=== PATIENT | male | born 1975 | race Caucasian/White ===

== ENCOUNTER 2017-06-06 12:16 | Observation (INO) | payer BC, OTHER ==
[2017-06-06] MEDS ORDERED: LABETALOL HCL 5 MG/ML VIAL IV ONE ×3 (14:00→15:24)
[2017-06-06 14:35] LABS: Hematocrit 47.7 % (42.0-52.0); Hemoglobin 15.8 gm/dL (13.5-18.0); Mean Cell Volume 86.6 fl (78-100); Mean Corpuscular Hemoglobin 28.7 pg (27-31); Mean Corpuscular Hgb Conc 33.1 g/dl (32-36); Mean Platelet Volume 10.5 fl (6.0-9.5); Neutrophil # 8.7 K/mm3 (1.3-6.0); Neutrophil % 72.8 % (42-75.0); Platelet Count 234 K/mm3 (150-450); Red Blood Count 5.51 M/mm3 (4.7-6.0); Red Cell Distribution Width 13.2 % (11.5-14.0); White Blood Count 11.9 K/mm3 (4.0-10.5)
[2017-06-06 14:51] LABS: Albumin * 3.5 gm/dl (3.4-5.0); Anion Gap 13.1 mmol/L (6.8-13.8); Bilirubin, Total 0.3 mg/dL (0.0-1.1); Ca. Corrected For Albumin 8.6 mg/dL (8.4-10.2); Calcium * 8.5 mg/dL (7.9-10.9); Carbon Dioxide 25.9 mmol/L (24-32.6); Total Protein 7.2 gm/dL (6.2-8.2); Troponin I 0.033 ng/ml (0.00-0.10)
[2017-06-06] MEDS ORDERED: ENOXAPARIN SODIUM 100 MG/ML SYRG SC ONE ×2 (15:51→15:58)
[2017-06-06] MEDS ORDERED: LISINOPRIL 10 MG TABLET PO ONE (15:52)
[2017-06-06] MEDS ORDERED: ENALAPRILAT DIHYDRATE 2.5 MG/2 ML VIAL IV ONE ×2 (15:52→15:58)
[2017-06-06] MEDS ORDERED: LISINOPRIL 10 MG TABLET ONE (15:57)
--- NOTE | 2017-06-06 16:11 | ERNOTE ---
Lower Extremity HPI - Narrative Date of Service: 06/06/17 - General Lower Extremities Pain: leg: right Time Seen by Provider: 06/06/17 12:23 Source: patient Exam Limitations: no limitations - Immun/Allergies/Home Medications Immunizations: IMMUNIZATION HX Immunizations Up to Date Yes History of Influenza Vaccine No Hx Pneumococcal Vaccination No Allergies/Adverse Reactions: Allergies Allergy/AdvReac Type Severity Reaction Status Date / Time Penicillins Allergy Unknown Verified 06/06/17 12:24 Home Medications: HOME MEDICATIONS NK [No Home Medication] 06/06/17 [Last Taken Unknown] - History of Present Illness Narrative: Patient presents to the ED for right leg swelling. He relates several days of right leg pain and swelling. He has never had this before. nothing makes it better or worse. Has not seen anyone else for this. mild SOB wit hit also, no CP. Has been sitting alot with harvesting but no other long car or plane trips. Has a Hx of HPB but no recent treatment. No REYNOSO, no acute focal N/T/W. Occurred: other - several days ago Method of Injury: Reports: no apparent injury Loss of Consciousness: Reports: no loss of consciousness Modifying Factors - (Improves): Reports: other - nothing Modifying Factors - (Worsens): Reports: movement Associated Symptoms: Denies: dizzy/light headedness, headache, weakness, chest pain Other Injuries: Reports: none Subsequent Symptoms: Denies: motor loss Prior Treament: Denies: recently seen Review of Systems - Review of Systems Constitutional: Absent: fever Respiratory: Present: shortness of breath Cardiology: Absent: chest pain Gastrointestinal/Abdominal: Absent: abdominal pain Genitourinary: Absent: dysuria Neurological: Absent: weakness All Other Systems: All systems neg except as marked - Patient's Past Medical History Patient History - Medical: No pertinent hx Patient History - Cardiac/Respiratory: Hypertension Patient History - Cancer: No Hx of Cancer Patient History - Surgical Procedures: Other Patient History - Other: None - Social History Living Situations: home Abuse History: No History of abuse Psych History: No pertinent hx Smoking Status: Current every day smoker Have you smoked in the past 12 months: Yes - Immunizations Immunizations Up to Date: Yes Hx Pneumococcal Vaccination: No History of Influenza Vaccine: No Physical Exam - Physical Exam General Appearance: Present: alert, no apparent distress Head Exam: Present: normal inspection, no evidence of injury Eye Exam: Normal inspection: bilateral, PERRL: bilateral Ears, Nose, Throat: Present: normal ENT inspection Neck: Present: normal inspection, nontender Respiratory: Present: no respiratory distress, normal breath sounds, no accessory muscle use, lungs clear Cardiovascular/Chest: Present: regular rate, rhythm, normal peripheral pulses, other - strong DP pulse Gastrointestinal/Abdominal: Present: normal bowel sounds, nontender, nondistended, soft Back Exam: Present: normal range of motion Extremity Exam: Present: other - swelling rigght LE diffusely. No compartment syndrome. Strong DP pulse Neurological Exam: Present: alert, normal mood/affect, no motor/sensory deficits Skin Exam: Present: normal color, warm/dry ED Progress - Results and Orders Patient's Lab Results:: I have reviewed the patient's lab results. - Vital Signs Patient's Vital Signs:: I have reviewed the patient's vital signs. Vital Signs: Vital Signs 06/06/17 06/06/17 06/06/17 12:20 13:29 14:10 Temperature 37.2 C Pulse Rate 96 88 91 Respiratory 18 12 16 Rate Blood Pressure 234/144 222/123 O2 Sat by Pulse 96 97 95 Oximetry 06/06/17 06/06/17 06/06/17 14:36 14:39 15:08 Temperature Pulse Rate 88 82 84 Respiratory 12 12 Rate Blood Pressure 231/146 231/146 210/130 O2 Sat by Pulse 95 96 Oximetry 06/06/17 06/06/17 15:38 15:42 Temperature Pulse Rate 80 84 Respiratory 12 Rate Blood Pressure 194/119 194/119 O2 Sat by Pulse 95 Oximetry - EKG EKG: NSR EKG read: Interp. by me EKG Comments: NSR rate 93. Non-specific changes, no clear STEMI. - CT/Ultrasound CT/Ultrasound Narrative: I reviewed official CT and ultrasound reports. DVT with PE - Progress/Reassessment Chief Complaint: Lower Extremity Pain/ Injury Progress Note-Subjective: 06/06/17 16:09 IV labetalol given, improved BP but still needs additional IV meds. D/W Dr Durham, will admit. She recommends Lovenox, ABG, IV Enalapril and oral lisinopril. Ordered. Pt agreeable.. Departure Clinical Impression: DVT (deep venous thrombosis), Pulmonary embolism, HTN (hypertension) - Departure Disposition: [facility] Condition: Stable
--- NOTE | 2017-06-06 17:39 | HP ---
Chief Complaint - Chief Complaint Date of Service: 06/06/17 Time of Service: 17:38 Chief Complaint: Swelling in right lower extremity and mild shortness of breath for the last 3-4 days. History of Present Illness: Patient is a 42-year-old WM with a H/O HTN in 2011[off medication now], BMI of 35.6, nicotine abuse who presents to the ER on 06/06/17 due to increasing swelling and pain RT lower extremity and mild shortness of breath of 3-4 days duration. 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 He denies any chest pain, sputum production, swelling in his lower extremities, fever/chills. US of RT lower extremity reveals acute deep venous thrombosis involving the right femoral vein, popliteal vein, posterior tibial vein and peroneal vein. CTA showed intraluminal thrombus within the third and the fourth order branches of the right lower lobe c/w RT lower lobe pulmonary embolus. No evidence of significant right heart strain. Patient was also found to have a maximum BP of 234/146. He denied any history of headaches/blurred vision/lightheadedness/N/V/D. he was initially given labetalol 20 mg IV followed by enalapril 1.25 mg IV. BP on arrival to the floor was 170/110. - Patient's Past Medical History Additional info: PAST MEDICAL HISTORY: HTN in 2013[patient stopped medication as he thought it was due to pain] BMI 35.5. Nicotine abuse. Patient History - Cancer: No Hx of Cancer Additional Info: PAST SURGICAL HISTORY: ORIF of RT bimalleolar fracture of ankle 08/2013. Closed reduction of posterior malleolar fracture 08/2013 Microfracture of medial talar dome 08/2013 Patient History - Other: None - Family History Mother Family History - Medical: Other - 66-HTN Father Family History - Medical: Other - 70-OA - Social History Living Situations: home - with spouse Abuse History: No History of abuse Psych History: No pertinent hx Smoking Status: Current every day smoker - 1 pack per day 28 years[since age 14 ] Have you smoked in the past 12 months: Yes Alcohol Use: rarely - every month - Immunizations Immunizations Up to Date: Yes Hx Pneumococcal Vaccination: No History of Influenza Vaccine: No Review Of Systems (GEN) - Review of Systems Generalized/Overall Review: Absent: Weakness, Chills, Fever Respiratory: Present: Shortness of Breath. Absent: Cough Cardiac: Absent: Chest Pain, Edema Abdominal: Absent: Nausea, Vomiting Musculoskeletal: Present: Other - RT leg swelling and pain Immunizations: IMMUNIZATION HX Immunizations Up to Date Yes History of Influenza Vaccine No Hx Pneumococcal Vaccination No Allergies/Adverse Reactions: Allergies Allergy/AdvReac Type Severity Reaction Status Date / Time Penicillins Allergy Unknown Verified 06/06/17 17:53 Home Medications: HOME MEDICATIONS NK [No Home Medication] 06/06/17 [Last Taken Unknown] Exam - Exam Vital Signs: Vital Signs - Last Taken Temp 37.2 C 06/06/17 12:20 Pulse 76 06/06/17 16:30 Resp 12 06/06/17 16:30 BP 151/132 06/06/17 16:30 Pulse Ox 96 06/06/17 16:30 Constitutional: Present: Young, Obese, Looks Older than stated age ENT Exam: Present: hearing grossly normal, moist mucous membranes Eye Exam: bilateral eye: PERRL, EOMI Neck: Present: normal inspection, trachea midline Respiratory: Present: lungs clear, normal breath sounds, no accessory muscle use Cardiovascular/Chest: Present: regular rate, rhythm, no chest tenderness. Absent: tachycardia Peripheral Pulses: carotid (R): 2+, carotid (L): 2+ Abdomen: Present: Normal bowel sounds, soft, nondistended - moderately obese. /Rectal: Present: Exam deferred Extremity: Present: other - RTL.E: Swollen, scarring around RT ankle + due to prior surgery,1+ edema; L.L.E: WNL. Skin Exam: Present: normal color, warm/dry Neurologic: Present: alert, oriented x 3 Appearance: Present: appropriate appearance, appropriate insight Eye contact: Present: cooperative, good eye contact, normal speech Thoughts: Present: normal mood /affect Diagnostic Studies: Laboratory Tests 06/06/17 14:19 WBC 11.9 H Hgb 15.8 Hct 47.7 Plt Count 234 06/06/17 14:19 Plasma Sodium 139 Potassium 4.0 Chloride 104 Carbon Dioxide 25.9 BUN 20 Creatinine 1.05 Est GFR (Non-Af Amer) 83 Random Glucose 107 Calcium Adj for Albumin 8.6 Total Bilirubin 0.3 AST 18 ALT 25 Alkaline Phosphatase 114 Troponin I 0.033 Total Protein 7.2 Albumin 3.5 06/06/17 CTA CHEST: 14:54: 1. Intraluminal thrombus within the third and fourth order branches of the right lower lobe. No evidence of significant right heart strain. No pericardial/pleural effusions. Dependent atelectasis. Calcified right hilar lymph nodes/nonspecific infrahilar lymphadenopathy present. 2. RT lower lobe pulmonary embolus present. 06/06/17: US RT EXT LMT: 12:28: 1. Acute deep venous thrombosis involving the right femoral vein, popliteal vein, posterior tibial vein and peroneal vein. Assessment/Plan - Narrative Narrative: 1. DVT RT lower extremity and RT lower lobe pulmonary embolus: Enoxaparin 1mg/kbw subq BID and start eliquis or apixaban 10 mg PO BID. will require anticoagulation for 6 months as it is unprovoked. 2. Asymptomatic hypertensive urgency: Enalapril 1.25 mg IV every 6 hours for BP greater than 190/120 and start lisinopril 20 mg PO twice a day. 3. Nicotine abuse: Start nicotine patch 21 mg topically daily. 4. Obesity: BMI 35.5. 5. CODE STATUS: Full. - Assessment/Plan (1) Pulmonary embolus, right Problem: Acute (2) Asymptomatic hypertensive urgency Problem: Acute (3) Right leg DVT Problem: Acute Qualifiers: Affected thrombotic vein of extremity: other lower extremity vein Chronicity: acute Qualified Code(s): I82.491 - Acute embolism and thrombosis of other specified deep vein of right lower extremity (4) Nicotine abuse Problem: Chronic (5) Obesity Problem: Chronic Qualifiers: Obesity type: unspecified obesity type Body mass index: BMI 35.0-35.9
[2017-06-06] MEDS ORDERED: FLU VACC QS2017-18(6MOS UP)/PF 60 MCG/0.5 ML SYRINGE IM ONE (18:05)
[2017-06-06] MEDS ORDERED: ENALAPRILAT DIHYDRATE 1.25 MG/ML VIAL IV PRN (18:24)
[2017-06-06] MEDS ORDERED: NICOTINE 21 MG PATC TD SCH (18:45)
[2017-06-06] MEDS: APIXABAN 2.5 MG TABLET PO SCH ×2 (20:57→21:36)
[2017-06-06] MEDS ORDERED: ENOXAPARIN SODIUM 100 MG/ML SYRG SC SCH (21:00)
[2017-06-06] MEDS ORDERED: LISINOPRIL 10 MG TABLET PO SCH (21:00)
[2017-06-07] MEDS ORDERED: ENOXAPARIN SODIUM 100 MG/ML SYRG SC SCH (04:00)
[2017-06-07] MEDS ORDERED: LISINOPRIL 10 MG TABLET PO STA (08:42)
[2017-06-07] MEDS: APIXABAN 2.5 MG TABLET PO SCH (08:49)
[2017-06-07] MEDS ORDERED: FLU VACC QS2017-18(6MOS UP)/PF 60 MCG/0.5 ML SYRINGE IM ONE (09:00)
--- NOTE | 2017-06-07 12:03 | DS ---
(1) Pulmonary embolus, right Problem: Acute (2) Asymptomatic hypertensive urgency Problem: Acute (3) Right leg DVT Problem: Acute Qualifiers: Affected thrombotic vein of extremity: other lower extremity vein Chronicity: acute Qualified Code(s): I82.491 - Acute embolism and thrombosis of other specified deep vein of right lower extremity (4) Nicotine abuse Problem: Chronic (5) Obesity Problem: Chronic Qualifiers: Obesity type: unspecified obesity type Body mass index: BMI 35.0-35.9 Description of Stay: DATE OF ADMISSION: 06/06/2017. DATE OF DISCHARGE: 06/07/2017. DIAGNOSTICS: ULTRASOUND OF RT LOWER EXTREMITY: 06/06/2017. CTA CHEST: 06/06/2017. DISCHARGE SUMMARY: Patient is a 42-year-old WM with a history of HTN in 2013[off medication], nicotine abuse, BMI 35.5, who came to the ER on 06/06/17 due to increasing swelling and pain of R.L.E. and mild SOB for the last 3-4 days. 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 US of right lower extremity revealed an acute deep venous thrombosis involving the right femoral vein, popliteal vein and posterior tibial and peroneal vein. CTA showed RT lower lobe pulmonary embolus. Patient had a maximum BP of 234/146 w/o S/S headache, blurred vision, lightheadedness, N/V/ D. He was given labetalol 20 mg IV X1, enalapril 1.25 mg IV X1 and lisinopril 20 mg by mouth 1. On arrival to the floor his BP was 170/110. EKG showed normal sinus rhythm with nonspecific ST and T wave changes in the lateral leads. Troponin 0.033. Patient was started on Enoxaparin at 1mg/kbw subq twice a day and apaxiban [ eliquis]10 mg PO twice a day as it was not known whether his insurance would cover the latter medication and he might eventually end up on warfarin. The processes of DVT/medications were explained in detail to him. He required a dose of enalapril IV during the night for a BP of 176/113 at approximately 3 AM. Started on a nicotine patch TP at 21 mg daily. Patient was strongly encouraged to quit smoking. Patient is being discharged in a stable condition on lisinopril 20 mg twice a day, apaxiban [eliquis] 10 mg by mouth twice a day for one week and then 5 mg twice a day for 6 months[as the PE/DVT unprovoked]. Patient may require sleep studies on an outpatient basis[ to be discussed by patient and PCP]. Greater than 30 minutes was spent with the patient discussing plan of care; reconciliation of medications, preparation and dictating discharge summary. Procedures Performed: none Results and Findings: Laboratory Tests 06/06/17 14:19 WBC 11.9 H Hgb 15.8 Hct 47.7 Plt Count 234 06/06/17 14:19 Plasma Sodium 139 Potassium 4.0 Chloride 104 Carbon Dioxide 25.9 BUN 20 Creatinine 1.05 Est GFR (Non-Af Amer) 83 Random Glucose 107 Calcium Adj for Albumin 8.6 Total Bilirubin 0.3 AST 18 ALT 25 Alkaline Phosphatase 114 Troponin I 0.033 Total Protein 7.2 Albumin 3.5 06/06/17 CTA CHEST: 14:54: 1. Intraluminal thrombus within the third and fourth order branches of the right lower lobe. No evidence of significant right heart strain. No pericardial/pleural effusions. Dependent atelectasis. Calcified right hilar lymph nodes/nonspecific infrahilar lymphadenopathy present. 2. RT lower lobe pulmonary embolus present. 06/06/17: US RT EXT LMT: 12:28: 1. Acute deep venous thrombosis involving the right femoral vein, popliteal vein, posterior tibial vein and peroneal vein. EK06/06/17: Normal sinus rhythm with nonspecific ST and T wave changes. Discharge Disposition: Home self care Disposition: Home self-care Condition: Undetermined Discharge Activity: Activity as tolerated Referrals: Christi Murillo MD [Primary Care Provider] - Consultation Done:: None Problem Oriented Discharge Instructions to Patient/Family: Pulmonary Embolism, Hypertension, [id number], Deep Vein Thrombosis Additional Patient Instructions (free text): 1. Follow-up with PCP on 06/10/17 for BP check - 8:30 - 8:45 a.m. 2. Be compliant with medications. 3. Encouraged to quit smoking. [Nicotine patch 21 mg for one month, 14 mg for second month, 7 mg for third month.] 4. Need to be on blood thinners for 6 months. 5. Vitamin D3 2000 units daily with food. 6. Follow-up with Dr. Durham on 06/18/17 @ 10:15 a.m. Prescriptions (Any new or edited meds): Apixaban [Eliquis] 5 mg PO BID #70 tablet Lisinopril [Zestril] 20 mg PO BID #120 tablet Nicotine [Nicotine Patch] 1 each TD DAILY #30 patch.td24 Complete Home Medications List: Complete Home Medication List: Apixaban [Eliquis] 5 mg PO BID #70 tablet 06/07/17 Lisinopril [Zestril] 20 mg PO BID #120 tablet 06/07/17 Nicotine [Nicotine Patch] 1 each TD DAILY #30 patch.td24 06/07/17
[2017-06-07 15:10] VITALS: BP 152/102
[2017-06-07] MEDS ORDERED: ENOXAPARIN SODIUM SC SCH ×2 (16:00)
[2017-06-11 07:26] LABS: Protein C Activity 72 % normal (70-180); Protein C Antigen 87 % normal (70-140)
== END 2017-06-07 15:22 | disposition home or self-care (01) ==
LOC: ER 12:16 → MS 15:57
PROVIDERS: ADMIT Internal Medicine; ATTEND Internal Medicine
PROC: 4A033R1 Measurement of Arterial Saturation, Peripheral, Percutaneous Approach (ICD-10-PCS; principal; 2017-06-06)
DX: I82.411 Acute embolism and thrombosis of right femoral vein (principal); I82.441 Acute embolism and thrombosis of right tibial vein; I82.491 Acute embolism and thrombosis of other specified deep vein of right lower extremity; I16.0 Hypertensive urgency; F17.210 Nicotine dependence, cigarettes, uncomplicated; E66.9 Obesity, unspecified; Z68.35 Body mass index [BMI] 35.0-35.9, adult; Z23 Encounter for immunization; I10 Essential (primary) hypertension
CPT/HCPCS: 36415; 36600; 71275; 80053; 81241; 82803; 83090; 84484; 85025; 85300; 85302; 85303; 85305; 85306; 90471; 90686; 93005; 93971; 96372; 96374; 96375; 96376; 99285; G0378

== ENCOUNTER 2020-12-08 09:57 | Observation (INO) ==
[2020-12-08 10:41] LABS: Hematocrit 27.8 % (42.0-52.0); Hemoglobin 8.8 gm/dL (13.5-18.0); Mean Corpuscular Hemoglobin 26.6 pg (27-31); Mean Corpuscular Hgb Conc 31.7 g/dl (32-36); Mean Platelet Volume 10.5 fl (8-11.3); Neutrophil # 14.4 K/mm3 (1.3-6.0); Neutrophil % 80.9 % (42-75.0); Platelet Count 271 K/mm3 (150-450); Red Blood Count 3.31 M/mm3 (4.7-6.0); Red Cell Distribution Width 15.2 % (11.5-14.0); White Blood Count 17.8 K/mm3 (4.0-10.5)
[2020-12-08 10:49] LABS: Prothrombin Time (Patient) 10.7 Seconds (9.1-10.7)
[2020-12-08 10:51] LABS: INR 1.03 INR (0.92-1.08); Partial Thrombolplastin Time 23.1 Seconds (24-32)
[2020-12-08 10:53] LABS: Albumin * 2.3 gm/dl (3.4-5.0); Anion Gap 15.2 mmol/L (6.8-13.8); BUN/Creatinine Ratio 37.3 (9.0-21.6); Bilirubin, Total 0.1 mg/dL (0.0-1.1); Ca. Corrected For Albumin 8.7 mg/dL (8.4-10.2); Calcium * 7.7 mg/dL (7.9-10.9); Carbon Dioxide 23.1 mmol/L (24-32.6); Potassium 3.3 mmol/L (3.4-4.6); Total Protein 4.9 gm/dL (6.2-8.2)
[2020-12-08] MEDS ORDERED: NORMAL SALINE 1,000 ML IV PRN (11:20)
[2020-12-08] MEDS ORDERED: PANTOPRAZOLE SODIUM 40 MG/100 ML PIGGYBACK IV ONE (11:21)
[2020-12-08] MEDS ORDERED: DIATRIZOATE MEGLUMINE, SODIUM 30 ML BTL ONE (11:48)
[2020-12-08] MEDS ORDERED: DIATRIZOATE MEGLUMINE, SODIUM 30 ML BTL PO ONE (11:51)
[2020-12-08 12:06] LABS: Urine Appearance Clear (CLEAR); Urine Bacteria None Seen; Urine Bilirubin Negative (NEGATIVE); Urine Blood Negative /ul (NEGATIVE); Urine Color Yellow; Urine Ketone Negative (NEGATIVE); Urine Nitrite Negative (NEGATIVE); Urine Protein 15 mg/dL (NEGATIVE); Urine RBC None Seen /hpf (0-5); Urine Urobilinogen Normal (NORMAL); Urine WBC None Seen /hpf (0-5); Urine pH 5.5 pH (5.0-7.0)
[2020-12-08] MEDS ORDERED: PIPERACILLIN SODIUM/TAZOBACTAM 3.375 GM in DEXTROSE 5 % IN WATER 100 ML IV ONE ×2 (12:09)
--- NOTE | 2020-12-08 12:12 | ERNOTE ---
GI Bleeding/Rectal Pain ER Date of Service: 12/08/20 Presenting Symptoms: rectal bleeding Time Seen by Provider: 12/08/20 11:05 Source: patient, RN notes reviewed Exam Limitations: no limitations Immunizations: IMMUNIZATION HX Immunizations Up to Date Yes History of Influenza Vaccine No Hx Pneumococcal Vaccination No Allergies/Adverse Reactions: Allergies Penicillins Allergy (Unknown, Verified 12/08/20 09:59) Home Medications: HOME MEDICATIONS amlodipine 10 mg tablet 10 mg PO QAM #30 tab 09/09/19 [Last Taken Unknown] furosemide 20 mg tablet 20 mg PO QAM #30 tab 09/09/19 [Last Taken Unknown] lisinopril 20 mg-hydrochlorothiazide 25 mg tablet 1 tab PO DAILY #30 tab 09/09/19 [Last Taken Unknown] metoprolol succinate 100 mg capsule sprinkle, ext. release 24 hr 100 mg PO DAILY #30 ea 09/09/19 [Last Taken Unknown] spironolactone 25 mg tablet See Rx Instructions .ROUTE .COMPLEX #60 unknown measurement unit code: not specified 11/20/19 [Last Taken Unknown] apixaban 5 mg tablet See Rx Instructions .ROUTE .COMPLEX #30 unknown measurement unit code: not specified 12/15/19 [Last Taken Unknown] Narrative: Jorge is a 45 yo male patient presents in NAD w/reports of lightheaded and weakness yesterday and last night that led him to drive to the ER for care today. He reports seeing blood in his stool this morning and some in the night. Denies fever, N/V/D, abdominal pain, hx of hemorrhoids, blood in his urine, CP, SOB. Patient denies known intestinal infections, diverticuli or masses or family hx of colon disease. Patient states he has not had any episodes of blood in his stools before. Patient states he has not taken his Eliquis for at least 1 month. PMHx positive DVT. Date (Duration): 12/07/20 Time (Timing): 08:00 Timing: constant, getting worse Prior Treament: Denies: recently seen Review of Systems - Narrative Narrative: Patient reports told he had PCN allergy as a child. Has had PCN as an adult multiple times w/o any reactions. - Review of Systems Constitutional: Present: no symptoms reported, See HPI, weakness. Absent: recent illness, fever EYE: Present: no symptoms reported. Absent: vision changes ENT: Present: no symptoms reported. Absent: ear pain, nose congestion, sore throat Respiratory: Present: See HPI. Absent: shortness of breath, cough Cardiology: Present: See HPI, other - "almost passed out going to the bathroom last night". Absent: chest pain, palpitations Gastrointestinal/Abdominal: Present: See HPI. Absent: nausea, vomiting, abdominal pain Genitourinary: Present: See HPI. Absent: dysuria, hematuria Musculoskeletal: Absent: back pain, joint pain, joint swelling Skin: Absent: rash, change in color Neurological: Present: dizziness/light-headedness, weakness. Absent: headache, tingling, tremors Endocrine: Absent: excessive sweating, unexplained weight gain, unexplained weight loss Hematologic/Lymphatic: Present: other - Denies taking any Eliquis for at least 30 days. Absent: easy bruising, easy bleeding Psych: Present: no symptoms reported Medical History (Last Reviewed 12/08/20 @ 11:18 by GABRIELA Oliva) History of deep vein thrombosis (DVT) of lower extremity (Chronic) Hypoalbuminemia (Chronic) Most likely secondary to chronic kidney disease Chronic kidney disease (CKD) stage G2/A1, mildly decreased glomerular filtration rate (GFR) between 60-89 mL/min/1.73 square meter and albuminuria creatinine ratio less than 30 mg/g (Chronic) Diastolic congestive heart failure, NYHA class 1 (Chronic) With decreased ejection fraction of 40%. last echo completed with January 25, 2019 Encounter for vision screening (Acute) R: 20/25 L: 20/20 B: 20/20 No correction Encounter for annual physical exam (Acute) Lymphadenopathy, inguinal (Acute) Microcytic anemia (Acute) No previous records to compare cell lines Lower extremity edema (Acute) Most likely secondary to congestive heart failure Obesity due to excess calories (Chronic) Essential hypertension (Chronic) Poorly controlled Snoring (Chronic) Associated with daytime fatigue Screening for depression (Ruled-out) Encounter to establish care with new doctor (Chronic) Congestive heart failure due to hypertension (Chronic) BNP obtained on December 20 greater than 14,000 Epididymitis (Acute) DVT (deep venous thrombosis) (Resolved) Pulmonary embolism (Resolved) HTN (hypertension) (Chronic) Asymptomatic hypertensive urgency (Acute) Pulmonary embolus, right (Resolved) Right leg DVT (Resolved) Nicotine abuse (Chronic) Obesity (Chronic) CHF (congestive heart failure) Surgical History: Surgical History (Last Reviewed 12/08/20 @ 11:19 by GABRIELA Oliva) Right ankle injury Repaired Family History: Family History (This Medical Record has been edited. Action required.) Factor V deficiency Hypertension Mother Social History: (This Medical Record has been edited. Action required.) Social History: Marital status: Single lives independently: Yes current occupational status: employed current occupation: [employer] Highest level of school completed/degree received: some college, no degree Service: No Tobacco: Smoking Status: Current every day smoker tobacco type: cigarettes Smoking cigarettes per day: 10.0 Smoking packs per day: 0.5 Alcohol: alcohol intake: former Substance Use: substance use type: does not use Dietary Habits: caffeine: Yes caffeine comment: daily Type: coffee Physical Exam - Physical Exam General Appearance: Present: wd/wn, alert, no apparent distress Head Exam: Present: normal inspection, no evidence of injury, no tenderness w palpation Eye Exam: Normal inspection: bilateral, PERRL: bilateral, EOMI: bilateral Ears, Nose, Throat: Present: normal ENT inspection, normal pharynx Neck: Present: normal inspection, nontender, supple, full range of motion. Absent: lymphadenopathy (R), lymphadenopathy (L) Respiratory: Present: no respiratory distress, normal breath sounds, no accessory muscle use, chest nontender, lungs clear. Absent: decreased breath sounds, pleural rub Cardiovascular/Chest: Present: no murmur, normal peripheral pulses, tachycardia - 103 Gastrointestinal/Abdominal: Present: normal bowel sounds, nontender, nondistended, soft, no organomegaly, other - Hematochezia present w/o stool, w/o melena. Absent: guarding, rebound Rectal Exam: Present: normal rectal tone, normal prostate, blood-streaked stool, tenderness, other. Absent: mass, fecal impaction, hemorrhoids Male Genitals Exam: Present: normal genitalia. Absent: no hernia Back Exam: Present: normal inspection, normal range of motion, no CVA tenderness Extremity Exam: Present: normal inspection, non-tender. Absent: decreased range of motion, joint swelling, extremity edema Neurological Exam: Present: alert, oriented, no motor/sensory deficits, other - flattened affect Skin Exam: Present: cool/dry, pallor. Absent: cyanosis, jaundice, skin rash Lymphatic Exam: Absent: no adenopathy Progress - Date and Time Seen: Date and Time: 12/08/20 14:30 Patient states he no longer feels lightheaded. Continues to deny nausea, - Results and Orders Patient's Lab Results:: I have reviewed the patient's lab results. - Vital Signs Patient's Vital Signs:: I have reviewed the patient's vital signs. Vital Signs: Vital Signs 12/08/20 09:58 Temperature 35.6 C L Pulse Rate 105 H Respiratory Rate 16 Blood Pressure 142/79 H O2 Sat by Pulse Oximetry 99 - EKG EKG #1 EKG: other - Sinus Tachycardia EKG read: Reviewed by me - Sinus Tach, Lead placement in question and repeat EKG requested - Progress/Reassessment Chief Complaint: GI Bleed Progress:: Improved Progress Note-Subjective: Patient states he feels better and is willing to get up to urinate and see how he tolerates being upright. Abdomen is moderately soft and minimally tender to LLQ. 12/08/20 17:10 Plan - Plan Plan: DDx: Acute Lower GI Bleed, Upper GI Bleed, Bowel Perforation, Sepsis, Acute Anemia r/t blood loss. Patient case reviewed w/Dr. Sams and he is in agreenh nt with GI Bleed work-up and evaluation for Sepsis. Zosyn given for elevated WBC 17.8 and Heme Positive stool. 1500 Dr. Bettencourt contacted and he recommends tagged RBC nuclear scan for active bleeding. He can be consulted tomorrow if Family Practice/Internal Medicine consults him following the scan if he is actively bleeding. 1530 Dr. Vasquez contacted for admission and she declines admission due to no surgeon recruiting operations consultant locally and verbalizes concern that he could possibly rebleed. F/U CBC drawn w/Hgb remaining essentially unchanged and WBC 16.9. Nuclear Medicine can do his scan here at 0630am. 1645 Patient is requesting to stay at [facility] if possible. Patient phone call with Daphney Johnson RN and discussion with patient and his family and Patient verbalizes understanding that if he is admitted to [facility] and demonstrates a decline in his condition prior to tomorrow that he will need to be transferred to a higher level of care. 1715 Dr. Arguello accepts the patient for admission and present to evaluate patient. Nuclear Medicine tagged RBC scan will be ordered once admission is complete. Departure Clinical Impression: Lower GI bleed, Anemia associated with acute blood loss - Departure Disposition: Still a patient Condition: Stable Referrals: Kole Arguello DO [Primary Care Provider] -
[2020-12-08 12:29] LABS: CRP 1.1 mg/dL (0.0-0.9)
[2020-12-08] MEDS ORDERED: NORMAL SALINE 1,000 ML IV ONE (13:34)
[2020-12-08 15:48] LABS: Hematocrit 26.7 % (42.0-52.0); Hemoglobin 8.4 gm/dL (13.5-18.0); Mean Cell Volume 84.5 fl (78-100); Mean Corpuscular Hemoglobin 26.6 pg (27-31); Mean Corpuscular Hgb Conc 31.5 g/dl (32-36); Mean Platelet Volume 11.6 fl (8-11.3); Neutrophil % 77.2 % (42-75.0); Platelet Count 264 K/mm3 (150-450); Red Blood Count 3.16 M/mm3 (4.7-6.0); Red Cell Distribution Width 15.4 % (11.5-14.0); White Blood Count 16.9 K/mm3 (4.0-10.5)
[2020-12-08] MEDS ORDERED: hydrALAZINE HCL 20 MG/ML VIAL IV PRN (17:31)
--- NOTE | 2020-12-08 17:34 | HP ---
Chief Complaint - Chief Complaint Date of Service: 12/08/20 Time of Service: 17:34 Chief Complaint: Bright red blood per rectum, fatigue History of Present Illness: 45-year-old male with history of congestive heart failure, diastolic grade 1, h ypertension, history of DVT with pulmonary embolus who presented to the ER today for lightheadedness and weakness that began 24 hours earlier. Patient states that he had a bloody bowel movement that morning which she has never had before. He denies abdominal pain, nausea or vomiting, fever or chills. Patient's initial hemoglobin was 8.8 and his heart rate was 105. Blood pressure was stable at 142/79. He was satting 99 % on room air. Patient had an abdominal and pelvic CT scan which was fairly benign aside from some incidental findings of atherosclerotic disease and degenerative changes but the source of bleeding was not identified. He also has mild retention of stool seen but otherwise negative exam. Patient did have a positive guaiac study in the ER. Our general surgeon was consulted who wanted to do a nuclear scan in the morning to look for GI bleed. Patient was stable upon examination and was not actively bleeding. He was typed and crossed and blood was ordered just in case. Patient was placed under observation for lower GI bleed. Patient also on Eliquis for his DVTs and history of pulmonary embolus. He has been out of this medicine though for the last 2 months and has not taken it. Other pertinent lab work include an acute kidney injury with his creatinine at 1.66 and his GFR at 48. His lactic acid was negative. Medical History (Last Reviewed 12/08/20 @ 11:18 by GABRIELA Oliva) History of deep vein thrombosis (DVT) of lower extremity (Chronic) Hypoalbuminemia (Chronic) Most likely secondary to chronic kidney disease Chronic kidney disease (CKD) stage G2/A1, mildly decreased glomerular filtration rate (GFR) between 60-89 mL/min/1.73 square meter and albuminuria creatinine ratio less than 30 mg/g (Chronic) Diastolic congestive heart failure, NYHA class 1 (Chronic) With decreased ejection fraction of 40%. last echo completed with January 25, 2019 Encounter for vision screening (Acute) R: 20/25 L: 20 B: 20 No correction Encounter for annual physical exam (Acute) Lymphadenopathy, inguinal (Acute) Microcytic anemia (Acute) No previous records to compare cell lines Lower extremity edema (Acute) Most likely secondary to congestive heart failure Obesity due to excess calories (Chronic) Essential hypertension (Chronic) Poorly controlled Snoring (Chronic) Associated with daytime fatigue Screening for depression (Ruled-out) Encounter to establish care with new doctor (Chronic) Congestive heart failure due to hypertension (Chronic) BNP obtained on December 20 greater than 14,000 Epididymitis (Acute) DVT (deep venous thrombosis) (Resolved) Pulmonary embolism (Resolved) HTN (hypertension) (Chronic) Asymptomatic hypertensive urgency (Acute) Pulmonary embolus, right (Resolved) Right leg DVT (Resolved) Nicotine abuse (Chronic) Obesity (Chronic) CHF (congestive heart failure) Surgical History: Surgical History (Last Reviewed 12/08/20 @ 11:19 by GABRIELA Oliva) Right ankle injury Repaired Family History: Family History (This Medical Record has been edited. Action required.) Mother Hypertension Other Factor V deficiency Social History: (This Medical Record has been edited. Action required.) Social History: Marital status: Single lives independently: Yes current occupational status: employed current occupation: [employer] Highest level of school completed/degree received: some college, no degree Service: No Tobacco: Smoking Status: Current every day smoker tobacco type: cigarettes Smoking cigarettes per day: 10.0 Smoking packs per day: 0.5 Alcohol: alcohol intake: former Substance Use: substance use type: does not use Dietary Habits: caffeine: Yes caffeine comment: daily Type: coffee Review Of Systems (GEN) - Review of Systems Generalized/Overall Review: Present: Weakness, Fatigue. Absent: Chills, Fever EENTM: Present: No Symptoms Reported Respiratory: Present: No Symptoms Reported Cardiac: Present: No Symptoms Reported Abdominal: Present: Bright blood from rectum. Absent: Constipation, Diarrhea Genitourinary: Absent: No Symptoms Reported Musculoskeletal: Present: Back Pain - Chronic Neurological: Present: No Symptoms Reported Skin: Present: No Symptoms Reported Immunizations: IMMUNIZATION HX Immunizations Up to Date Yes History of Influenza Vaccine No Hx Pneumococcal Vaccination No Allergies/Adverse Reactions: Allergies Allergy/AdvReac Type Severity Reaction Status Date / Time Penicillins Allergy Unknown Verified 12/08/20 09:59 Home Medications: HOME MEDICATIONS amlodipine 10 mg tablet 10 mg PO QAM #30 tab 09/09/19 [Last Taken Unknown] furosemide 20 mg tablet 20 mg PO QAM #30 tab 09/09/19 [Last Taken Unknown] lisinopril 20 mg-hydrochlorothiazide 25 mg tablet 1 tab PO DAILY #30 tab 09/09/19 [Last Taken Unknown] metoprolol succinate 100 mg capsule sprinkle, ext. release 24 hr 100 mg PO DAILY #30 ea 09/09/19 [Last Taken Unknown] spironolactone 25 mg tablet See Rx Instructions .ROUTE .COMPLEX #60 unknown measurement unit code: not specified 11/20/19 [Last Taken Unknown] apixaban 5 mg tablet See Rx Instructions .ROUTE .COMPLEX #30 unknown measurement unit code: not specified 12/15/19 [Last Taken Unknown] Exam - Exam Vital Signs: Vital Signs - Last Taken Temp 36 C 12/08/20 17:29 Pulse 120 H 12/08/20 17:29 Resp 20 12/08/20 17:29 BP 153/87 H 12/08/20 17:29 Pulse Ox 97 12/08/20 17:29 Constitutional: Present: Alert, Oriented x3, Cooperative, No distress ENT Exam: Present: hearing grossly normal Eye Exam: bilateral eye: normal inspection, EOMI Neck: Present: non-tender, supple, trachea midline Respiratory: Present: lungs clear, normal breath sounds Cardiovascular/Chest: Present: no murmur, tachycardia Peripheral Pulses: dorsalis-pedis (R): 2+, dorsalis-pedis (L): 2+ Abdomen: Present: Normal bowel sounds, soft, nontender, nondistended Extremity: Present: normal capillary refill. Absent: lower extremity edema Skin Exam: Present: cool/dry, pallor Neurologic: Present: alert, normal mood/affect, oriented x 3 Appearance: Present: appropriate appearance, appropriate insight Eye contact: Present: cooperative, good eye contact Thoughts: Present: normal thought pattern, normal mood /affect Diagnostic Studies: Abnormal Lab Results 12/08/20 12/08/20 12/08/20 Range/Units 10:35 10:35 10:35 WBC 17.8 H (4.0-10.5) K/mm3 RBC 3.31 L (4.7-6.0) M/mm3 Hgb 8.8 L (13.5-18.0) gm/dL Hct 27.8 L (42.0-52.0) % MCH 26.6 L (27-31) pg MCHC 31.7 L (32-36) g/dl RDW 15.2 H (11.5-14.0) % MPV (8-11.3) fl Immature Gran % (Auto) 0.80 H (0.001-0.429) % Immature Gran # (Auto) 0.14 H (0.000-0.0310) K/mm3 Neutrophils % 80.9 H (42-75.0) % Lymphocytes % 11.5 L (20-51) % Neutrophils # 14.4 H (1.3-6.0) K/mm3 Monocytes # 1.1 H (0.0-1.0) k/mm3 PTT ([place]) 23.1 L (24-32) Seconds Potassium 3.3 L (3.4-4.6) mmol/L Carbon Dioxide 23.1 L (24-32.6) mmol/L Anion Gap 15.2 H (6.8-13.8) mmol/L BUN 62 H (6-23) mg/dL Creatinine 1.66 H (0.4-1.4) mg/dL Est GFR (Non-Af Amer) 48 L (60-130) mL/min BUN/Creatinine Ratio 37.3 H (9.0-21.6) Random Glucose 119 H (70-110) mg/dL Calcium 7.7 L (7.9-10.9) mg/dL C-Reactive Prot, Quant (0.0-0.9) mg/dL Total Protein 4.9 L (6.2-8.2) gm/dL Albumin 2.3 L (3.4-5.0) gm/dl Urine Protein (NEGATIVE) mg/dL Stool Occult Blood 12/08/20 12/08/20 12/08/20 Range/Units 10:35 11:33 11:33 WBC (4.0-10.5) K/mm3 RBC (4.7-6.0) M/mm3 Hgb (13.5-18.0) gm/dL Hct (42.0-52.0) % MCH (27-31) pg MCHC (32-36) g/dl RDW (11.5-14.0) % MPV (8-11.3) fl Immature Gran % (Auto) (0.001-0.429) % Immature Gran # (Auto) (0.000-0.0310) K/mm3 Neutrophils % (42-75.0) % Lymphocytes % (20-51) % Neutrophils # (1.3-6.0) K/mm3 Monocytes # (0.0-1.0) k/mm3 PTT ([place]) (24-32) Seconds Potassium (3.4-4.6) mmol/L Carbon Dioxide (24-32.6) mmol/L Anion Gap (6.8-13.8) mmol/L BUN (6-23) mg/dL Creatinine (0.4-1.4) mg/dL Est GFR (Non-Af Amer) (60-130) mL/min BUN/Creatinine Ratio (9.0-21.6) Random Glucose (70-110) mg/dL Calcium (7.9-10.9) mg/dL C-Reactive Prot, Quant 1.1 H (0.0-0.9) mg/dL Total Protein (6.2-8.2) gm/dL Albumin (3.4-5.0) gm/dl Urine Protein 15 H (NEGATIVE) mg/dL Stool Occult Blood Positive H 12/08/20 Range/Units 15:44 WBC 16.9 H (4.0-10.5) K/mm3 RBC 3.16 L (4.7-6.0) M/mm3 Hgb 8.4 L (13.5-18.0) gm/dL Hct 26.7 L (42.0-52.0) % MCH 26.6 L (27-31) pg MCHC 31.5 L (32-36) g/dl RDW 15.4 H (11.5-14.0) % MPV 11.6 H (8-11.3) fl Immature Gran % (Auto) 0.50 H (0.001-0.429) % Immature Gran # (Auto) 0.08 H (0.000-0.0310) K/mm3 Neutrophils % 77.2 H (42-75.0) % Lymphocytes % 14.4 L (20-51) % Neutrophils # 13.0 H (1.3-6.0) K/mm3 Monocytes # 1.1 H (0.0-1.0) k/mm3 PTT ([place]) (24-32) Seconds Potassium (3.4-4.6) mmol/L Carbon Dioxide (24-32.6) mmol/L Anion Gap (6.8-13.8) mmol/L BUN (6-23) mg/dL Creatinine (0.4-1.4) mg/dL Est GFR (Non-Af Amer) (60-130) mL/min BUN/Creatinine Ratio (9.0-21.6) Random Glucose (70-110) mg/dL Calcium (7.9-10.9) mg/dL C-Reactive Prot, Quant (0.0-0.9) mg/dL Total Protein (6.2-8.2) gm/dL Albumin (3.4-5.0) gm/dl Urine Protein (NEGATIVE) mg/dL Stool Occult Blood Laboratory Results WBC 16.9 K/mm3 (4.0-10.5) H 12/08/20 15:44 RBC 3.16 M/mm3 (4.7-6.0) L 12/08/20 15:44 Hgb 8.4 gm/dL (13.5-18.0) L 12/08/20 15:44 Hct 26.7 % (42.0-52.0) L 12/08/20 15:44 MCV 84.5 fl (78-100) 12/08/20 15:44 MCH 26.6 pg (27-31) L 12/08/20 15:44 MCHC 31.5 g/dl (32-36) L 12/08/20 15:44 RDW 15.4 % (11.5-14.0) H 12/08/20 15:44 Plt Count 264 K/mm3 (150-450) 12/08/20 15:44 MPV 11.6 fl (8-11.3) H 12/08/20 15:44 Immature Gran % (Auto) 0.50 % (0.001-0.429) H 12/08/20 15:44 Immature Gran # (Auto) 0.08 K/mm3 (0.000-0.0310) H 12/08/20 15:44 Neutrophils % 77.2 % (42-75.0) H 12/08/20 15:44 Lymphocytes % 14.4 % (20-51) L 12/08/20 15:44 Monocytes % 6.4 % (0.0-9) 05/20/21 15:44 Eosinophils % 1.0 % (0.0-3.0) 12/08/20 15:44 Basophils % 0.5 % (0.0-1.0) 12/08/20 15:44 Nucleated RBC % 0.0 k/mm3 (0-1) 12/08/20 15:44 Neutrophils # 13.0 K/mm3 (1.3-6.0) H 12/08/20 15:44 Lymphocytes # 2.43 k/mm3 (1.5-3.5) 12/08/20 15:44 Monocytes # 1.1 k/mm3 (0.0-1.0) H 12/08/20 15:44 Eosinophils # 0.2 k/mm3 (0.0-0.7) 12/08/20 15:44 Absolute Basophils 0.1 k/mm3 (0.0-0.1) 12/08/20 15:44 PT 10.7 Seconds (9.1-10.7) 12/08/20 10:35 INR (Anticoag Therapy) 1.03 INR (0.92-1.08) 12/08/20 10:35 PTT ([place]) 23.1 Seconds (24-32) L 12/08/20 10:35 D-Dimer 0.45 ugFEU/mL (0.19-0.49) D 12/08/20 10:35 Sodium 139 mmol/L (132-142) 12/08/20 10:35 Plasma Sodium 139 mmol/L (130-142) 12/08/20 10:35 Potassium 3.3 mmol/L (3.4-4.6) L 12/08/20 10:35 Chloride 104 mmol/L (97-106) 12/08/20 10:35 Carbon Dioxide 23.1 mmol/L (24-32.6) L 12/08/20 10:35 Anion Gap 15.2 mmol/L (6.8-13.8) H 12/08/20 10:35 BUN 62 mg/dL (6-23) H 12/08/20 10:35 Creatinine 1.66 mg/dL (0.4-1.4) H 12/08/20 10:35 Est GFR (Non-Af Amer) 48 mL/min (60-130) L 12/08/20 10:35 BUN/Creatinine Ratio 37.3 (9.0-21.6) H 12/08/20 10:35 Random Glucose 119 mg/dL (70-110) H 12/08/20 10:35 Lactic Acid, Venous 1.4 mmol/L (0.4-2.0) 12/08/20 10:35 Calcium 7.7 mg/dL (7.9-10.9) L 12/08/20 10:35 Calcium Adj for Albumin 8.7 mg/dL (8.4-10.2) 12/08/20 10:35 Total Bilirubin 0.1 mg/dL (0.0-1.1) 12/08/20 10:35 AST 18 U/L (0-48) 12/08/20 10:35 ALT 20 U/L (19-67) 12/08/20 10:35 Alkaline Phosphatase 67 U/L (50-170) 12/08/20 10:35 C-Reactive Prot, Quant 1.1 mg/dL (0.0-0.9) H 12/08/20 10:35 Total Protein 4.9 gm/dL (6.2-8.2) L 12/08/20 10:35 Albumin 2.3 gm/dl (3.4-5.0) L 12/08/20 10:35 Lipase 102 U/L (73-393) 12/08/20 10:35 Procalcitonin 0.13 ng/mL (0.05-0.50) 12/08/20 10:35 Urine Color Yellow 12/08/20 11:33 Urine Appearance Clear (CLEAR) 12/08/20 11:33 Urine pH 5.5 pH (5.0-7.0) 12/08/20 11:33 Ur Specific [place] 1.020 SP.GR. (1.005-1.030) 12/08/20 11:33 Urine Protein 15 mg/dL (NEGATIVE) H 12/08/20 11:33 Urine Glucose (UA) Negative mg/dL (NEGATIVE) 12/08/20 11:33 Urine Ketones Negative mg/dL (NEGATIVE) 12/08/20 11:33 Urine Blood Negative /ul (NEGATIVE) 12/08/20 11:33 Urine Nitrate Negative (NEGATIVE) 12/08/20 11:33 Urine Bilirubin Negative mg/dl (NEGATIVE) 12/08/20 11:33 Urine Urobilinogen Normal EU/dl (NORMAL) 12/08/20 11:33 Ur Leukocyte Esterase Negative /ul (NEGATIVE) 12/08/20 11:33 Urine RBC None seen /hpf (0-5) 12/08/20 11:33 Urine WBC None seen /hpf (0-5) 12/08/20 11:33 Ur Epithelial Cells 0-5 /hpf (0-5) 12/08/20 11:33 Urine Bacteria None seen (NONE) 12/08/20 11:33 Urine Culture Comments No culture indicated 12/08/20 11:33 Stool Occult Blood Positive H 12/08/20 11:33 SARS-CoV-2 (PCR) Not detected (NotDetected) 12/08/20 12:46 Blood Type A Positive 12/08/20 10:35 Antibody Screen Negative 12/08/20 10:35 Assessment/Plan - Narrative Narrative: 45-year-old male admitted under observation for acute lower GI bleed and fatigue as well as acute blood loss anemia. Patient hemoglobin is stable at this time at 8.8. We will recheck this evening at 10:00. We will also repeat CBC in the morning at 7 AM. Patient will made n.p.o. at midnight in case general surgery wants to do anything with him. Nuclear scan is ordered for the morning as well and will review this with the patient and Dr. Bettencourt once the results return. If he continues to have any more blood loss than likely will transfuse him 1 to 2 units depending on what his hemoglobin comes back at. Blood pressure right now is appropriate and he is tachycardic. We will continue normal saline at 125 throughout the night just to make sure his hemo-dynamically stable. This will likely cause some hemodilution but should be minimal. We will repeat CMP in the morning as well to evaluate kidney function as he does have an acute kidney injury and his creatinine and GFR are normally in a better range, baseline creatinine is around 1 and GFR is in the 70s. Holding oral medications at this time. Will order hydralazine as needed for elevated blood pressure. We will restart his blood pressure medications once the plan is better determined tomorrow. Regular diet this evening, again n.p.o. after midnight. SCDs to be worn in bed. Nurse to call with questions or concerns. - Assessment/Plan (1) Lower GI bleed Problem: Acute (2) Anemia associated with acute blood loss Problem: Acute (3) Diastolic congestive heart failure, NYHA class 1 Problem: Chronic Qualifiers: Congestive heart failure chronicity: chronic Qualified Code(s): I50.32 - Chronic diastolic (congestive) heart failure (4) Resistant hypertension Problem: Chronic (5) History of DVT (deep vein thrombosis) Problem: Acute (6) History of pulmonary embolus (PE) Problem: Acute
[2020-12-08] MEDS: NORMAL SALINE 1,000 ML IV SCH (18:41)
[2020-12-08] MEDS ORDERED: ACETAMINOPHEN 500 MG TABLET PO PRN (21:51)
[2020-12-08 22:11] LABS: Hematocrit 24.5 % (42.0-52.0); Mean Cell Volume 84.8 fl (78-100); Mean Corpuscular Hemoglobin 26.6 pg (27-31); Mean Corpuscular Hgb Conc 31.4 g/dl (32-36); Platelet Count 273 K/mm3 (150-450); Red Blood Count 2.89 M/mm3 (4.7-6.0); Red Cell Distribution Width 15.7 % (11.5-14.0); White Blood Count 18.7 K/mm3 (4.0-10.5)
[2020-12-08 22:15] LABS: Hemoglobin 7.7 gm/dL (13.5-18.0)
[2020-12-08] MEDS ORDERED: traMADol HCL 50 MG TABLET PO ONE (22:31)
[2020-12-09] MEDS: NORMAL SALINE 1,000 ML IV SCH ×2 (02:41→10:55)
[2020-12-09 06:47] LABS: Mean Corpuscular Hgb Conc 31.7 g/dl (32-36); Neutrophil # 8.8 K/mm3 (1.3-6.0); Neutrophil % 75.8 % (42-75.0); Platelet Count 228 K/mm3 (150-450); Red Blood Count 2.67 M/mm3 (4.7-6.0); Red Cell Distribution Width 15.9 % (11.5-14.0); White Blood Count 11.6 K/mm3 (4.0-10.5)
[2020-12-09 07:47] LABS: Hematocrit 22.7 % (42.0-52.0); Hemoglobin 7.2 gm/dL (13.5-18.0)
[2020-12-09] MEDS ORDERED: KETOROLAC TROMETHAMINE 30 MG/ML VIAL IV ONE ×2 (08:35→09:45)
[2020-12-09] MEDS ORDERED: MORPHINE SULFATE 4 MG/ML SYRG IV ONE ×2 (08:36→09:45)
[2020-12-09 09:03] LABS: Anion Gap 12.2 mmol/L (6.8-13.8); BUN/Creatinine Ratio 26.1 (9.0-21.6); Calcium * 7.7 mg/dL (7.9-10.9); Carbon Dioxide 24.7 mmol/L (24-32.6); Estimated Creat Clear 94.7; Potassium 3.9 mmol/L (3.4-4.6)
[2020-12-09] MEDS ORDERED: FUROSEMIDE 10 MG/ML VIAL IV ONE (16:00)
[2020-12-09 18:05] LABS: Hematocrit 27.5 % (42.0-52.0); Hemoglobin 8.7 gm/dL (13.5-18.0); Mean Cell Volume 86.8 fl (78-100); Mean Corpuscular Hemoglobin 27.4 pg (27-31); Mean Corpuscular Hgb Conc 31.6 g/dl (32-36); Mean Platelet Volume 10.1 fl (8-11.3); Platelet Count 223 K/mm3 (150-450); Red Blood Count 3.17 M/mm3 (4.7-6.0); Red Cell Distribution Width 15.7 % (11.5-14.0); White Blood Count 11.9 K/mm3 (4.0-10.5)
--- NOTE | 2020-12-09 18:29 | DS ---
(1) Lower GI bleed Problem: Acute (2) Anemia associated with acute blood loss Problem: Acute (3) Diastolic congestive heart failure, NYHA class 1 Problem: Chronic Qualifiers: Congestive heart failure chronicity: chronic Qualified Code(s): I50.32 - Chronic diastolic (congestive) heart failure (4) Resistant hypertension Problem: Chronic (5) History of DVT (deep vein thrombosis) Problem: Acute (6) History of pulmonary embolus (PE) Problem: Acute Date of Discharge:: 12/09/20 Hospital Course: Jorge was admitted for lower GI bleed which has since resolved. Patient had CT scan in the ER which showed no occult bleed and then stayed overnight for a nuclear red blood cell scan. This was negative for an acute bleed. Patient hemoglobin dropped from 8.8 down to 7.2 overnight, loss likely due to hemoglobin try to catch up to the bleed as well as hemodilution. Patient was transfused 2 units today and is feeling much better. Patient was given a one-time dose of IV Lasix following his second transfusion. Patient's hemoglobin rebounded and came back at 8.7. Patient wants to be discharged home this evening and his vital signs are stable. He is in agreement with follow-up with Dr. Bettencourt early next week for colonoscopy. No changes were made to his chronic medication. Patient had already discontinued Eliquis 2 months earlier due to insurance issues and so we will not restart this at this time for obvious reasons. Otherwise continue his chronic medications for his heart failure and resistant hypertension. Blood pressure again has been stable but mildly elevated due to him not being restarted on all of his medicines but he can resume them this evening. Patient advised to return to the ER if he develops rectal bleeding again which he states his understanding to. Patient can follow up with me in my clinic in 2 weeks. 1 hour spent with patient today reviewing his records, managing treatment plan, scheduling follow ups, and dictating this note. Procedures Performed: none Results and Findings: Pending Mircobiology Results 12/08/20 13:10 Blood Blood Culture - Preliminary NO GROWTH 24 HOURS 12/08/20 10:35 Blood Blood Culture - Preliminary NO GROWTH 24 HOURS Lab Pending Results 12/08/20 10:35: WBC 17.8 H, RBC 3.31 L, Hgb 8.8 L, Hct 27.8 L, MCV 84.0, MCH 26.6 L, MCHC 31.7 L, RDW 15.2 H, Plt Count 271, MPV 10.5, Immature Gran % (Auto) 0.80 H, Immature Gran # (Auto) 0.14 H, Neutrophils % 80.9 H, Lymphocytes % 11.5 L, Monocytes % 6.0, Eosinophils % 0.4, Basophils % 0.4, Nucleated RBC % 0.0, Neutrophils # 14.4 H, Lymphocytes # 2.05, Monocytes # 1.1 H, Eosinophils # 0.1, Absolute Basophils 0.1 12/08/20 10:35: PT 10.7, INR (Anticoag Therapy) 1.03, PTT (Faith) 23.1 L 12/08/20 10:35: Sodium 139, Plasma Sodium 139, Potassium 3.3 L, Chloride 104, Carbon Dioxide 23.1 L, Anion Gap 15.2 H, BUN 62 H, Creatinine 1.66 H, Est GFR (Non-Af Amer) 48 L, BUN/Creatinine Ratio 37.3 H, Random Glucose 119 H, Calcium 7.7 L, Calcium Adj for Albumin 8.7, Total Bilirubin 0.1, AST 18, ALT 20, Alkaline Phosphatase 67, Total Protein 4.9 L, Albumin 2.3 L 12/08/20 10:35: Blood Type A Positive, Antibody Screen Negative, Crossmatch See Detail 12/08/20 10:35: Procalcitonin 0.13 12/08/20 10:35: C-Reactive Prot, Quant 1.1 H, Lipase 102 12/08/20 10:35: D-Dimer 0.45 D 12/08/20 10:35: Lactic Acid, Venous 1.4 12/08/20 11:33: Urine Color Yellow, Urine Appearance Clear, Urine pH 5.5, Ur Specific [place] 1.020, Urine Protein 15 H, Urine Glucose (UA) Negative, Urine Ketones Negative, Urine Blood Negative, Urine Nitrate Negative, Urine Bilirubin Negative, Urine Urobilinogen Normal, Ur Leukocyte Esterase Negative, Urine RBC None seen, Urine WBC None seen, Ur Epithelial Cells 0-5, Urine Bacteria None seen, Urine Culture Comments No culture indicated 12/08/20 11:33: Stool Occult Blood Positive H 12/08/20 12:46: SARS-CoV-2 (PCR) Not detected 12/08/20 15:44: WBC 16.9 H, RBC 3.16 L, Hgb 8.4 L, Hct 26.7 L, MCV 84.5, MCH 26.6 L, MCHC 31.5 L, RDW 15.4 H, Plt Count 264, MPV 11.6 H, Immature Gran % (Auto) 0.50 H, Immature Gran # (Auto) 0.08 H, Neutrophils % 77.2 H, Lymphocytes % 14.4 L, Monocytes % 6.4, Eosinophils % 1.0, Basophils % 0.5, Nucleated RBC % 0.0, Neutrophils # 13.0 H, Lymphocytes # 2.43, Monocytes # 1.1 H, Eosinophils # 0.2, Absolute Basophils 0.1 12/08/20 22:03: WBC 18.7 H, RBC 2.89 L, Hgb 7.7 L*, Hct 24.5 L, MCV 84.8, MCH 26.6 L, MCHC 31.4 L, RDW 15.7 H, Plt Count 273, MPV 11.0 12/09/20 06:30: WBC 11.6 H D, RBC 2.67 L, Hgb 7.2 L*, Hct 22.7 L*, MCV 85.0, MCH 27.0, MCHC 31.7 L, RDW 15.9 H, Plt Count 228, MPV 11.0, Immature Gran % (Auto) 0.50 H, Immature Gran # (Auto) 0.06 H, Neutrophils % 75.8 H, Lymphocytes % 14.6 L, Monocytes % 6.8, Eosinophils % 1.9, Basophils % 0.4, Nucleated RBC % 0.0, Neutrophils # 8.8 H, Lymphocytes # 1.69, Monocytes # 0.8, Eosinophils # 0.2, Absolute Basophils 0.1 12/09/20 06:30: Sodium 142, Plasma Sodium 142, Potassium 3.9, Chloride 109 H, Carbon Dioxide 24.7, Anion Gap 12.2, BUN 31 H, Creatinine 1.19, Est GFR (Non-Af Amer) 71 D, BUN/Creatinine Ratio 26.1 H, Random Glucose 87, Calcium 7.7 L Discharge Location: Home Disposition: Home self-care Condition: Stable Discharge Activity: Activity as tolerated Discharge Diet: Low salt Referrals: Kole Arguello DO [Primary Care Provider] - Complete Home Medications List: Complete Home Medication List: amlodipine 10 mg tablet 10 mg PO QAM #30 tab 09/09/19 furosemide 20 mg tablet 20 mg PO QAM #30 tab 09/09/19 lisinopril 20 mg-hydrochlorothiazide 25 mg tablet 1 tab PO DAILY #30 tab 09/09/19 metoprolol succinate 100 mg capsule sprinkle, ext. release 24 hr 100 mg PO DAILY #30 ea 09/09/19 spironolactone 25 mg tablet See Rx Instructions .ROUTE .COMPLEX #60 unknown measurement unit code: not specified 11/20/19 Forms: Patient Portal Registration
[2020-12-09 19:08] VITALS: BP 154/89
[2020-12-10] MEDS ORDERED: HYDROCHLOROTHIAZIDE 25 MG TABLET PO SCH (09:00)
[2020-12-10] MEDS ORDERED: SPIRONOLACTONE 25 MG TABLET PO SCH (09:00)
[2020-12-10] MEDS ORDERED: LISINOPRIL PO SCH (09:00)
[2020-12-10] MEDS ORDERED: HYDROCHLOROTHIAZIDE PO SCH (09:00)
[2020-12-10] MEDS ORDERED: [UNRECOGNIZED DRUG - OTHER] PO SCH (09:00)
[2020-12-10] MEDS ORDERED: METOPROLOL SUCCINATE 100 MG TABLET.SA PO SCH (14:00)
[2020-12-10] MEDS ORDERED: LISINOPRIL 20 MG TABLET PO SCH (14:00)
== END 2020-12-09 19:18 | disposition home or self-care (01) ==
LOC: ER 09:57 → MS 17:43 → INTOOBSV 17:43 → MS 17:50
PROVIDERS: ADMIT Family Medicine; ATTEND Family Medicine
DX: Z86.718 Personal history of other venous thrombosis and embolism; R42 Dizziness and giddiness; Z72.0 Tobacco use; I50.32 Chronic diastolic (congestive) heart failure; K92.1 Melena; D62 Acute posthemorrhagic anemia; N17.9 Acute kidney failure, unspecified; R53.1 Weakness; Z86.711 Personal history of pulmonary embolism; I11.0 Hypertensive heart disease with heart failure